=== PATIENT | male | born 1940 | race Caucasian/White ===

== ENCOUNTER 2018-06-26 09:33 | Outpatient (CLI) | payer MEDICARE, BC ==
--- NOTE | 2018-06-26 10:48 | RAD ---
PA AND LATERAL CHEST: History: Dyspnea. Comparison: None available. FINDINGS/IMPRESSION: The heart size is enlarged. The lungs are well expanded with chronic interstitial changes. No lobar c onsolidation, pneumothoraces or pleural effusions are seen. There are degenerative changes of the spi ne. There is no evidence of lucy pulmonary edema. POS: OFF
== END 2018-06-26 09:34 | disposition home or self-care (01) ==
LOC: RAD 09:33
PROVIDERS: ATTEND Internal Medicine Critical Care Medicine
DX: R06.00 Dyspnea, unspecified (principal); I51.7 Cardiomegaly; M47.819 Spondylosis without myelopathy or radiculopathy, site unspecified; J98.4 Other disorders of lung
CPT/HCPCS: 71046